=== PATIENT | male | born 1970 | race Caucasian/White ===

== ENCOUNTER 2016-06-28 11:39 | Observation (INO) | payer MEDICARE ==
[~2016-06-28] VITALS: Ht 167.6 cm; Wt 83.0 kg
[2016-06-28] MEDS ORDERED: ASPIRIN 81 MG CHEW TAB ONE (11:50)
[2016-06-28] MEDS ORDERED: NITROGLYCERIN SL 0.4 MG TAB SL ONE (12:37)
[2016-06-28] MEDS ORDERED: MORPHINE 2 MG/ML SYR IV PRN (13:50)
[2016-06-28] MEDS ORDERED: TRAMADOL 50 MG TAB PO PRN (13:50)
[2016-06-28] MEDS ORDERED: LORAZEPAM 0.5 MG TAB PO PRN (13:50)
[2016-06-28] MEDS ORDERED: SALINE FLUSH 10 ML FLUSH PRN (13:50)
[2016-06-28] MEDS ORDERED: ONDANSETRON 4 MG VIAL IV PRN (13:50)
[2016-06-28] MEDS ORDERED: ACETAMINOPHEN 325 MG TAB PO PRN (13:50)
[2016-06-28] MEDS ORDERED: TEMAZEPAM 7.5 MG CAP PO PRN (13:50)
[2016-06-28] MEDS ORDERED: ALU/MAG/SIM 30 ML UDC PO PRN (13:50)
[2016-06-28] MEDS ORDERED: NITROGLYCERIN SL 0.4 MG TAB SL PRN (13:50)
[2016-06-28 14:50] VITALS: BP_SYST 107; BP_SYST 97; RESP 18; TEMP 97.3
[2016-06-28 14:51] VITALS: Ht 167.6 cm; Wt 83.0 kg
[2016-06-28] MEDS: ASPIRIN 81 MG CHEW TAB PO SCH (16:59)
[2016-06-28] MEDS: PANTOPRAZOLE 40 MG TAB PO SCH (17:27)
[2016-06-28] MEDS: TICAGRELOR 90 MG TAB PO SCH (20:21)
[2016-06-28] MEDS: Carvedilol 3.125 MG TAB PO SCH (20:21)
[2016-06-28] MEDS: SALINE FLUSH 10 ML FLUSH SCH (20:22)
[2016-06-28] MEDS ORDERED: Atorvastatin 40 MG TAB PO SCH (21:00)
[2016-06-28] MEDS ORDERED: LORATADINE 10 MG TAB PO SCH (21:00)
[2016-06-28 22:43] VITALS: BP_SYST 107; RESP 18; TEMP 98
[2016-06-29 02:55] VITALS: BP_SYST 103; RESP 18; TEMP 97.7
[2016-06-29] MEDS ORDERED: SODIUM CHLORIDE 0.9% FLUSH BAG 500 ML IV SCH (06:00)
[2016-06-29] MEDS: PANTOPRAZOLE 40 MG TAB PO SCH (07:00)
[2016-06-29 07:27] VITALS: BP_SYST 119; RESP 18; TEMP 97.8
[2016-06-29] MEDS: SALINE FLUSH 10 ML FLUSH SCH (08:45)
[2016-06-29] MEDS: ASPIRIN 81 MG CHEW TAB PO SCH (08:45)
[2016-06-29] MEDS: TICAGRELOR 90 MG TAB PO SCH (08:45)
[2016-06-29] MEDS ORDERED: UBIDECARENONE 50 MG PO SCH (09:00)
[2016-06-29 14:30] VITALS: BP_SYST 113; RESP 16; TEMP 97.5
[2016-06-29 14:31] VITALS: RESP 16
[2016-06-29] MEDS: Carvedilol 3.125 MG TAB PO SCH (14:32)
[2016-06-29 15:39] VITALS: BP_SYST 108; RESP 16; TEMP 97.9
[2016-06-29 16:20] VITALS: BP_SYST 108; RESP 16; TEMP 97.9
== END 2016-06-29 15:57 | disposition home or self-care (01) ==
LOC: ENRESERVDT → ENRESERVTM → ER 11:39 → EMR 13:48 → ENPENDDIS 13:48 → PCU2 14:33
PROVIDERS: ADMIT Internal Medicine Cardiovascular Disease; ATTEND Internal Medicine Cardiovascular Disease
DX: R07.9 Chest pain, unspecified (principal); I25.10 Atherosclerotic heart disease of native coronary artery without angina pectoris; Z98.61 Coronary angioplasty status; E78.5 Hyperlipidemia, unspecified; I25.2 Old myocardial infarction; K21.9 Gastro-esophageal reflux disease without esophagitis; Z79.82 Long term (current) use of aspirin
CPT/HCPCS: 36415; 71010; 78452; 80053; 82550; 82553; 83735; 84484; 85025; 85610; 85730; 93005; 93017; 99285; A9500; G0378